=== PATIENT | male | born 1990 | race Caucasian/White ===

== ENCOUNTER 2018-03-01 22:06 | Emergency (ER) | payer OTHER, SELFPAY ==
[2018-03-01 22:11] VITALS: BP 141/72; PULSE 92; RESP 18; TEMP 37.1; O2SAT 96; BMI 27.5
--- NOTE | 2018-03-01 22:41 | ED.ALLEREA ---
HPI - Allergic Reaction General Chief complaint: Allergic Reaction Stated complaint: THINKS ALLERGIC REACTION SWELLING OF FACE AND STOLL Time Seen by Provider: 03/01/18 22:24 Source: patient Mode of arrival: ambulatory Limitations: no limitations History of Present Illness HPI narrative: Patient is a 27-year-old male presents with facial swelling and hand swelling. He just got back from [place]. He said that he has has had an allergic reaction in [place] in the past with a similar reaction to this. He has no lip swelling no tongue swelling or difficulty breathing. He has been taking quite a bit of Siean without any relief. He also got bit by multiple mosquitoes and fire ants while there. MD complaint: allergic reaction and facial swelling Onset (ago): day(s) (2) Exposure: unknown Symptoms: rash and facial swelling Previous Allergic Reaction History: none Related Data Previous Rx's Medication Instructions Recorded prednisone 50 mg PO DAILY #4 tab 03/01/18 Allergies Allergy/AdvReac Type Severity Reaction Status Date / Time amoxicillin Allergy Verified 03/01/18 22:16 Sulfa (Sulfonamide Allergy Verified 03/01/18 22:16 Antibiotics) Review of Systems Review of Systems All systems reviewed & are unremarkable except as noted in HPI and below Constitutional Denies chills, Denies fever(s), Denies lethargy and Denies weakness Eyes Denies change in vision, Denies eye discharge, Denies irritation and Denies loss of vision ENT Ears, Nose, Mouth, and Throat: Reports as per HPI, Denies lip swelling, Denies throat swelling and Denies tongue swelling Cardiovascular Denies chest pain, Denies irregular heart rhythm, Denies lightheadedness, Denies palpitations, Denies dyspnea, Denies dyspnea on exertion and Denies orthopnea Respiratory Denies cough, Denies dyspnea, Denies dyspnea on exertion and Denies wheezing Gastrointestinal Gastrointestinal: Denies abdominal pain, Denies change in bowel habits, Denies diarrhea, Denies nausea and Denies vomiting Musculoskeletal Denies back pain, Denies muscle weakness, Denies numbness and Denies tingling Integumentary/Breasts Reports pruritus, Denies erythema, Reports rash and Denies wounds Neurologic Denies loss of vision, Denies numbness, Denies tingling and Denies weakness Endocrine Denies palpitations Allergic/Immunologic Denies lip swelling, Denies throat swelling, Denies tongue swelling and Denies wheezing [facility] Medical History Healthy adult (Acute) Social History Smoking Status: Current some day smoker Exam Initial Vital Signs Initial Vital Signs: Vital Signs Temperature 98.7 F 03/01/18 22:11 Pulse Rate 92 H 03/01/18 22:11 Respiratory Rate 18 03/01/18 22:11 Blood Pressure 141/72 H 03/01/18 22:11 Pulse Oximetry 96 03/01/18 22:11 GENERAL: Well-appearing, well-nourished and in no acute distress. HEENT: Head atraumatic,EOMI, pupils reactive, facial swelling. More on right than left. Still able to open both eyes completely PHARYNX: No tongue swelling no lip swelling, no stridor CARDIOVASCULAR: Regular rate and rhythm without murmurs, rubs or gallops. RESPIRATORY: Breath sounds equal bilaterally, no wheezes rales or rhonchi. ABDOMEN: Soft, nontender. Normoactive bowel sounds all 4 quadrants. No guarding or rebound. EXTREMITIES: Normal range of motion, no clubbing or edema. Neurovascularly intact NEUROLOGICAL: Alert and oriented x4.Normal gait and speech. Cranial nerves II through XII grossly intact. SKIN: Bites noted on back, no hives, no abscess no vesicles Course Orders Ordered: Discontinued Medications Diphenhydramine HCl (Benadryl) 50 mg PO NOW ONE Stop: 03/01/18 22:36 Last Admin: 03/01/18 22:42 Dose: 50 mg Prednisone (Deltasone) 60 mg PO NOW ONE Stop: 03/01/18 22:36 Last Admin: 03/01/18 22:42 Dose: 60 mg Vital Signs - 8 hr 03/01/18 22:11 Temperature 98.7 F Pulse Rate 92 H Respiratory Rate 18 Blood Pressure 141/72 H Pulse Oximetry 96 Discharge Plan Departure Patient Disposition: Home Clinical Impression: Allergic reaction Discharge Date/Time: 03/01/18 23:02 Interventions: ED Discharge Assessment Last Done: 03/01/18 23:02 Instructions: DI for General Allergic Reactions Activity Restrictions/Additional Instructions: *You have been diagnosed with allergic reaction *What to do: May require allergy testing *Continue to take medications as directed -Prednisone 50 mg daily x 4 days -benadryl 25-50mg every 6 hours if needed for itching *Follow up with your primary care provider in 2-3 days *Return to ER if you should have difficulty breathing, difficulty swallowing, increased lip or tongue swelling or any new, worsening or concerning symptoms Prescriptions: New prednisone 50 mg tablet 50 mg PO DAILY Qty: 4 RF: 0
[2018-03-01] MEDS: predniSONE 20 MG TABLET 60 MG PO (22:42)
[2018-03-01] MEDS: diphenhydrAMINE 25 MG TABLET 50 MG PO (22:42)
== END 2018-03-01 23:02 | disposition home or self-care (01) ==
PROVIDERS: Emergency Provider Emergency Medicine
DX: T78.40XA Allergy, unspecified, initial encounter (principal)
CPT/HCPCS: 99282; 99283